=== PATIENT | female | born 1985 | race Caucasian/White ===

== ENCOUNTER 2017-03-05 18:02 | Emergency (ER) | payer MEDICAID, OTHER ==
[~2017-03-05] VITALS: Ht 162.6 cm; Wt 103.5 kg
[~2017-03-05 18:02] MED LIST: CALC600T5 PO; FERR240T9 PO; POLY10DR19 BOTH EYES; PREN-39 PO
[2017-03-05 18:43] VITALS: Ht 162.6 cm; Wt 103.5 kg
--- NOTE | 2017-03-05 22:07 | ERD ---
ER Documentation Chief Complaint Date/Time DATE: 03/05/17 TIME: 22:00 Chief Complaint VAG BLEED X1.5 MO. OFF/ON LAST 3 WKS STRAIGHT. MIRENA IUD HPI 32-year-old female presents here to emergency department for complaints of vaginal bleeding on and off for the last 1-1/2 months, patient has been having on and off worsening vaginal bleeding for the last 3 weeks. Soaks 1-2 packs per day. Patient does not have any blood in urine or stool. Patient does not have any black stool. Patient denies any flank pain. She denies being . Patient has IUD in place for the last 3 years. ROS All systems reviewed and are negative except as per history of present illness. Medications Home Meds Active Scripts Polymyxin B Sulfate-TMP* (Polymyxin B-TMP Eye Drops*) 10 Ml Drops, 1 DROP BOTH EYES QID for 7 Days, EA Prov:TED MONTEMAYOR [employer]IM[employer]USB[employer] PROFESSOR 03/22/15 Reported Medications Vits W-Ca,Fe,Fa(<1MG) ( Vitamins) 1 Tab Tablet, 1 TAB PO 02/14/14 Calcium Carbonate (CALCIUM) 600 Mg Tablet, 600 MG PO 02/14/14 Ferrous Gluconate (Iron) 1 Tab Tablet, 1 TAB PO 02/14/14 Allergies Allergies: Coded Allergies: No Known Allergies (Unverified Allergy, Unknown, 03/05/17) PMhx/Soc History of Surgery: Yes (CSECTION) Anesthesia Reaction: No Hx Neurological Disorder: No Hx Respiratory Disorders: No Hx Cardiac Disorders: No Hx Psychiatric Problems: No Hx Miscellaneous Medical Probl: No Hx Alcohol Use: Yes (occasionally) Hx Substance Use: No Hx Tobacco Use: No Smoking Status: Never smoker FmHx Family History: No coronary disease, No diabetes, No other Physical Exam Vitals Vital Signs Date Time Temp Pulse Resp B/P Pulse Ox O2 Delivery O2 Flow Rate FiO2 03/05/17 18:43 98.3 79 20 176/85 99 Physical Exam GENERAL: The patient is well developed and appropriate for usual state of health, in no apparent distress. CHEST: Clear to auscultation bilaterally. There are no rales, wheezes or rhonchi. HEART: Regular rate and rhythm. No murmurs, clicks, rubs or gallops. No S3 or S4. ABDOMEN: Soft, nontender and nondistended. Good bowel sounds. No rebound or guarding. No gross peritonitis. No gross organomegaly or masses. No Miller sign or McBurney point tenderness. BACK: No midline or flank tenderness. EXTREMITIES: Equal pulses bilaterally. There is no peripheral clubbing, cyanosis or edema. No focal swelling or erythema. Full range of motion. Grossly neurovascularly intact. NEURO: Alert and oriented. Cranial nerves 2-12 intact. Motor strength in all 4 extremities with 5/5 strength. Sensation grossly intact. Normal speech and gait. SKIN: There is no apparent rash or petechia. The skin is warm and dry. HEMATOLOGIC AND LYMPHATIC: There is no evidence of excessive bruising or lymphedema. No gross cervical, axillary, or inguinal lymphadenopathy. Result Diagram: 03/05/172224 Results 24 hrs Laboratory Tests Test 03/05/17 22:25 White Blood Count 10.110^3/ul Red Blood Count 4.4610^6/ul Hemoglobin 12.5g/dl Hematocrit 38.3% Mean Corpuscular Volume 85.9fl Mean Corpuscular Hemoglobin 28.0pg Mean Corpuscular Hemoglobin Concent 32.6g/dl Red Cell Distribution Width 12.9% Platelet Count 38370^3/UL Mean Platelet Volume 10.6fl Neutrophils % 52.6% Lymphocytes % 36.4% Monocytes % 6.6% Eosinophils % 3.7% Basophils % 0.4% Nucleated Red Blood Cells % 0.0/100WBC Neutrophils # 5.310^3/ul Lymphocytes # 3.710^3/ul Monocytes # 0.710^3/ul Eosinophils # 0.410^3/ul Basophils # 0.010^3/ul Nucleated Red Blood Cells # 0.010^3/ul Urine Color YELLOW Urine Clarity SLIGHTLY CLOUDY Urine pH 5.0 Urine Specific [place] 1.019 Urine Ketones NEGATIVEmg/dL Urine Nitrite NEGATIVEmg/dL Urine Bilirubin NEGATIVEmg/dL Urine Urobilinogen NEGATIVEmg/dL Urine Leukocyte Esterase NEGATIVELeu/ul Urine Microscopic RBC 4/HPF Urine Microscopic WBC 4/HPF Urine Squamous Epithelial Cells FEW/HPF Urine Mucus FEW/HPF Urine Hemoglobin 3+mg/dL Urine Glucose NEGATIVEmg/dL Urine Total Protein NEGATIVEmg/dl Beta HCG, Quantitative < 2.4mIU/ml PROCEDURE: US Pelvis. CLINICAL INDICATION: Pelvic pain. TECHNIQUE: The pelvis was evaluated with transabdominal and transvaginal sonography in the axial and sagittal planes. COMPARISON: No prior study is available for comparison. FINDINGS: Uterus: 9.9 x 4.4 x 6.0 cm. Endometrium: An IUD is present in satisfactory position within the endometrial canal. Endometrial thickness is 11.7 mm. Right ovary: 2.9 x 1.5 x 1.9 cm. Left ovary: 3.0 x 2.3 x 2.6 cm. Uterine masses: None. Ovarian masses: None. Color Doppler and pulsed Doppler sonography demonstrate normal flow to the ovaries. Other pelvic masses: None. Free fluid: None. IMPRESSION: 1. IUD in satisfactory position within the endometrial canal. 2. Otherwise unremarkable pelvic ultrasound. RPTAT: QQ .Maurice Flores MD, Date Time Electronically viewed and signed by .Maurice Flores MD, on 03/05/2017 22:25 .R/ CC: TED MONTEMAYOR [employer]USB[employer] PROFESSOR Procedures/MDM Medical Decision Making: Patients vaginal bleeding is most likely consistent of dysfunctional uterine bleeding. Patient does not show any evidence of hypovolemic shock. Patients hemoglobin and hematocrit is stable. There is low suspicion for ectopic . SANDEE results show IUD in place, no fibroma,, no fibroids or any other abnormality_. BetaHCG Quantitative is low consistent with . There is no signs of symptoms of dehydration. There is low suspicion for sepsis. Patient appears well and is hemodynamically stable. Disposition: Home. Condition: Stable Prescriptions: Ferrous sulfate, Colace Instructions: Patient is advised to do bed rest, avoid heavy lifting, and avoid having sex until cleared by OB doctor. Patient is advised to follow up with OB doctor for further evaluation and management. Patient is advised that is symptoms are worst, severe bleeding, dizziness, severe abdominal pain, fever, worst signs and symptoms to return to the emergency department immediately. Disclaimer: Inadvertent spelling and grammatical errors are likely due to EHR/ dictation software use and do not reflect on the overall quality of patient care. Also, please note that the electronic time recorded on this note does not necessarily reflect the actual time of the patient encounter. Departure Diagnosis: Primary Impression: Vaginal bleeding Condition: Stable Patient Instructions: Dysfunctional Uterine Bleeding Additional Instructions: Patient is advised to do bed rest, avoid heavy lifting, and avoid having sex until cleared by OB doctor. Patient is advised to follow up with OB doctor for further evaluation and management. Patient is advised that is symptoms are worst , severe bleeding, dizziness, severe abdominal pain, fever, worst signs and symptoms to return to the emergency department immediately. TED MONTEMAYOR NP Mar 05, 2017 22:07
--- NOTE | 2017-03-05 22:25 | RADRPT ---
PROCEDURE: US Pelvis. CLINICAL INDICATION: Pelvic pain. TECHNIQUE: The pelvis was evaluated with transabdominal and transvaginal sonography in the axial a nd sagittal planes. COMPARISON: No prior study is available for comparison. FINDINGS: Uterus: 9.9 x 4.4 x 6.0 cm. Endometrium: An IUD is present in satisfactory position within the endometrial canal. Endometrial th ickness is 11.7 mm. Right ovary: 2.9 x 1.5 x 1.9 cm. Left ovary: 3.0 x 2.3 x 2.6 cm. Uterine masses: None. Ovarian masses: None. Color Doppler and pulsed Doppler sonography demonstrate normal flow to the ova terrence. Other pelvic masses: None. Free fluid: None. IMPRESSION: 1. IUD in satisfactory position within the endometrial canal. 2. Otherwise unremarkable pelvic ultrasound. RPTAT: QQ .Maurice Flores MD, Date Time Electronically viewed and signed by .Maurice Flores MD, on 03/05/2017 22:25 .R/
[2017-03-05 22:37] LABS: BASOPHILS % 0.4 % (0.0-2.0); EOSINOPHILS # 0.4 10^3/ul (0.0-0.5); EOSINOPHILS % 3.7 % (0.0-7.0); HEMATOCRIT 38.3 % (37.0-47.0); HEMOGLOBIN 12.5 g/dl (12.0-16.0); LYMPHOCYTES # 3.7 10^3/ul (0.8-2.9); LYMPHOCYTES % 36.4 % (15.0-51.0); MEAN CORPUSCULAR HGB CONC 32.6 g/dl (32.0-37.0); MEAN CORPUSCULAR VOLUME 85.9 fl (82.0-101.0); MEAN PLATELET VOLUME 10.6 fl (7.4-10.4); MONOCYTE # 0.7 10^3/ul (0.3-0.9); MONOCYTES % 6.6 % (0.0-11.0); NEUTROPHIL # 5.3 10^3/ul (1.6-7.5); NEUTROPHILS % 52.6 % (39.0-77.0); PLATELET COUNT 262 10^3/UL (140-415); RED BLOOD COUNT 4.46 10^6/ul (4.20-5.40); RED CELL DISTRIBUTION WIDTH 12.9 % (11.5-14.5); WHITE BLOOD COUNT 10.1 10^3/ul (4.8-10.8)
[2017-03-05 22:42] LABS: ADD UMIC YES; UR ASCORBIC ACID NEGATIVE (NEGATIVE); UR BILIRUBIN (Dip) NEGATIVE (NEGATIVE); UR BLOOD (Dip) 3+ mg/dL (NEGATIVE); UR CLARITY SLIGHTLY CLOUDY (CLEAR); UR COLOR YELLOW (YELLOW); UR GLUCOSE (Dip) NEGATIVE (NEGATIVE); UR KETONES (Dip) NEGATIVE (NEGATIVE); UR LEUKOCYTE ESTERASE (Dip) NEGATIVE Leu/ul (NEGATIVE); UR MUCUS FEW /HPF (NONE SEEN); UR NITRITE (Dip) NEGATIVE (NEGATIVE); UR RBC 4 /HPF (0-5); UR SPECIFIC GRAVITY (Dip) 1.019 (1.003-1.030); UR SQUAMOUS EPITHELIAL CELL FEW /HPF (FEW); UR TOTAL PROTEIN (Dip) NEGATIVE (NEGATIVE); UR UROBILINOGEN (Dip) NEGATIVE (NEGATIVE)
[2017-03-05] MEDS ORDERED: FER325 PO (23:20)
[2017-03-05] MEDS ORDERED: DOCU-144 PO (23:20)
== END 2017-03-05 23:21 | disposition home or self-care (01) ==
LOC: FTE 18:02
DX: N93.8 Other specified abnormal uterine and vaginal bleeding (principal)
CPT/HCPCS: 36415; 76830; 76856; 81001; 84702; 85025; 86850; 86900; 86901; Z7502